=== PATIENT | female | born 1960 | race Caucasian/White ===

== ENCOUNTER 2023-02-06 04:40 | Emergency (ER) | payer OTHER ==
[~2023-02-06] VITALS: Ht 162.6 cm; Wt 72.6 kg
[2023-02-06 04:47] VITALS: BP 144/90
--- NOTE | 2023-02-06 04:49 | NUR ---
PT BROUGHT TO BED 8 VIA [facility]
[2023-02-06] MEDS ORDERED: KETOROLAC 30 MG/ML VIAL IM ONE (04:50)
[2023-02-06] MEDS ORDERED: MORPHINE SULFATE 4 MG/ML SYR IM ONE (04:50)
[2023-02-06] MEDS ORDERED: LORazepam 0.5 MG TAB PO ONE (05:45)
--- NOTE | 2023-02-06 07:00 | NUR ---
transport arrived. pt to return to [facility]. [facility] karina [facility]
--- NOTE | 2023-02-06 07:05 | NUR ---
Patient discharged with v/s stable. Written and verbal after care instructions given and explained. Patient verbalized understanding. Ambulance Transport with to skilled nursing. All questions addressed prior to discharge. Advised to follow up with PMD. reinforced Dr. muller's orders
== END 2023-02-06 07:05 | disposition home or self-care (01) ==
LOC: MED 04:40
DX: G50.0 Trigeminal neuralgia (principal); F32.9 Major depressive disorder, single episode, unspecified; F41.9 Anxiety disorder, unspecified; I10 Essential (primary) hypertension; M19.90 Unspecified osteoarthritis, unspecified site
CPT/HCPCS: 96372; 99284; J1885; J2270

== ENCOUNTER 2023-03-10 04:14 | Emergency (ER) | payer OTHER ==
[~2023-03-10] VITALS: Ht 165.1 cm; Wt 82.6 kg
--- NOTE | 2023-03-10 04:16 | NUR ---
PT. JORDI ARROYO; PLACED IN BED 08.
[2023-03-10 04:19] VITALS: BP 162/84
--- NOTE | 2023-03-10 04:37 | NUR ---
Note shantione in EDM - 03/10/23 at 0513 by [id number] Patient discharged with v/s stable. Written and verbal after care instructions given and explained. Patient alert, oriented and verbalized understanding of instructions. All questions addressed prior to discharge. ID band removed. Patient advised to follow up with PMD. Rx sent to preferred pharmacy. Patient educated on indication of medication including possible reaction and side effects. Opportunity to ask questions provided and answered.
--- NOTE | 2023-03-10 04:39 | NUR ---
Patient being evaluated by ARELY at bedside.
[2023-03-10] MEDS ORDERED: MORPHINE SULFATE 4 MG/ML SYR IM ONE (04:45)
--- NOTE | 2023-03-10 05:00 | NUR ---
Pt medicated as ordered; tolerated well.
--- NOTE | 2023-03-10 05:38 | NUR ---
Pt c/o L side facial pain x5 days; described as sharp in nature; Given [place] and Tramadol at SNF with no improvement. Denies fever, chills, n/v PMH of trigeminal neuralgia with similar pain in the past.
[2023-03-10 05:42] VITALS: BP 147/79
[2023-03-10] MEDS ORDERED: MORPHINE TAB ER 15 MG TABER PO ONE (06:45)
--- NOTE | 2023-03-10 07:16 | NUR ---
REPORT RECEIVED BY FARZAD VILLALTA.
--- NOTE | 2023-03-10 08:55 | NUR ---
[facility] CALL THE CAR IS AT BEDSIDE
--- NOTE | 2023-03-10 09:08 | NUR ---
The patient's care was reviewed and supervised by ED Agency Nurse 9, RN, RN.
--- NOTE | 2023-03-10 09:17 | NUR ---
Patient discharged with v/s stable. Written and verbal after care instructions given and explained. Patient verbalized understanding. Ambulance Transport with to detention. All questions addressed prior to discharge. Advised to follow up with PMD.
== END 2023-03-10 09:17 | disposition home or self-care (01) ==
LOC: MED 04:14
DX: G50.0 Trigeminal neuralgia (principal)
CPT/HCPCS: 96372; 99283; J2270